=== PATIENT | female | born 2000 | race Two or more races ===

== ENCOUNTER 2025-03-11 09:12 | Outpatient (AMB) | payer BC, MEDICAID, SELFPAY ==
--- NOTE | 2025-03-11 09:20 | OBCLNT_ITS ---
Vital Signs 03/11/25 09:27 Height 1.68 m Height Method Stated Weight 57.833 kg Weight Measurement Method Standing Scale BMI 20.5 BP 106/69 Blood Pressure Source Automatic Cuff Blood Pressure Location Left Upper Arm Position Sitting Respiration 18 Pulse 76 Pulse Source Monitor Temp 97.2 F Temp Source Oral Pulse Oximetry (%) 98 Oxygen Delivery Method Room Air Allergies/Home Meds Allergies & Medications Allergies avocado Allergy (Severe, Verified 03/11/25 09:29) Swelling of Lip/Tongue/Throat banana Allergy (Severe, Verified 03/11/25 09:29) Swelling of Lip/Tongue/Throat pineapple Allergy (Severe, Verified 03/11/25 09:29) Swelling of Lip/Tongue/Throat shellfish derived Allergy (Severe, Verified 03/11/25 09:29) Swelling of Lip/Tongue/Throat Medication Reconciliation prenat.vits,donna,[id number] 1 tab PO QDAY 09/27/21 [History Confirmed 03/11/25] ondansetron HCl 4 mg tablet 4 mg PO Q8H PRN nausea and vomiting #30 tabs 03/11/25 [Rx] Intake Visit Data Collection New Patient or Established: Established Patient (seen at [facility] within 3 years) Reason for Visit:: OBI Seen by Clinical Staff ONLY (RN/MA): No Table Tender Required: No Do You Feel Safe at Home: Yes Authorities Contacted: N/A PCP or OBGYN visit in last 3 months: Yes Date of Last PCP or OBGYN visit: 02/26/25 Hx Now: Yes Are you currently on any form of Control: No Last menstrual period: 01/27/25 Pain Present Currently: No Pain Scale Used: Mendoza-Vasquez/Numerical Pain scale:: 0 Smoking Status Smoking Status: Never smoker Questionnaires Covid-19 Vaccine Questionnaire Has patient been vacinated for Covid-19 Have you been vacinated for Covid-19: Yes PHQ-9 PHQ-2 Over the last 2 weeks, how often have you been bothered by any of the following problems? 1. Little interest or pleasure in doing things: not at all 2. Feeling down, depressed, or hopeless: not at all Total score: 0 PHQ-9 3. Trouble falling or staying asleep, or sleeping too much: Not at all 4. Feeling tired or having little energy: Not at all 5. Poor appetite or overeating: Not at all 6. Feeling bad about yourself - or that you are a failure or have let yourself or your family down: Not at all 7. Trouble concentrating on things, such as reading the newspaper or watching television: Not at all 8. Moving or speaking so slowly that other people could have noticed? - Or the opposite - being so fidgety or restless that you have been moving around a lot more than usual: not at all 9. Thoughts that you would be better off or of hurting yourself in some way: Not at all Total score: 0 If you checked off any problems, how difficult have these problems made it for you to do your work, take care of things at home, or get along with other people?: not difficult at all Source: Developed by Drs. Zia Brooks, Kathy Renteria, Brandon Osorio and colleagues, with an educational christa from [employer]. Depression screen completed yes Social History Living Situation History Marital Status: Single Lives With: Significant Other Housing: House Tobacco History Smoking Status: Never smoker Second Hand Smoke Exposure: No Alcohol History Alcohol Intake: Never Domestic Abuse History Do You Feel Safe at Home: Yes History of Present Illness HPI Narrative 24-year-old 3 para 2 for OBI. Patient's last. January 27, 2025. Estimated due date November 04, 2025. Patient reports sure dates. Menses are monthly and the last about 5 days. Denies any bleeding or SAB complaints. She does feel tired and have waves of nausea. Patient denies any existing past medical history. Denies any surgeries. Denies any social habits. The last 2 pregnancies were both boys. And pregnancies were uncomplicated and no problems. 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 sure dates, c/o waves of nausea and tiredness. no sab complaints, fob involved, happy OB panel today, schedule sono for viability and dates. OB pane with GC/CT and UA, A!c, HCG x1, sched sono for viability, discuss diet and weight, fluid, sab precaution reviewed. comfort measure for nausea, zofran 4 mg prn q 8hr Menstrual History Menstrual reliability: definite Flow: normal Menstrual regularity: regular Monthly: No Age at menarche: 17 On control pills at conception: No Date of positive home test: 02/26/25 OB History : 3 Para: 2 Hx # Pregnancies: 0 Hx Total # of Abortions (Spontaneous & Elective): 0 # of Living Children: 2 Delivery History 1st : date: 07/23/19 sex: male Delivery type: vaginal weight (lbs): 3175.147 g weight (oz): 340.194 g History of depression before or after : No 2nd : date: 09/28/21 sex: male Delivery type: vaginal weight (lbs): 3628.739 g weight (oz): 170.097 g History of depression before or after : No Infection History & Risk Evaluation History of STDs: none HIV risk evaluation: low risk Hepatitis B risk evaluation: low risk Patient or partner has history of Genital Herpes: No Varicella/chicken pox status: immunized Genetic Screening & History Genetic Screening/Teratology Counseling - Includes patient, baby's father, or anyone in either family with: 1. Patient's age 35 years or older as of estimated date of delivery: No 2. Thalassemia (Monegasque, English, Mediterranean, or Background); MCV less than 80: No 3. Neural Tube Defect (Meningomyelocele, Spina Bifida, or Anencephaly): No 4. Congenital Heart Defect: No 5. Down Syndrome: No 6. Son-Sachs (Ashkenazi Nondenominational, Cajun, Mongolian Mcmullen): No 7. Stevan Disease (Ashkenazi Nondenominational): No 8. Familial Dysautonomia (Ashkenazi Nondenominational): No 9. Sickle Cell Disease or Trait (): No 10. Hemophilia or other blood disorders: No 11. Muscular Dystrophy: No 12. Cystic Fibrosis: No 13. [place]'s Chorea: No 14. Mental Retardation/Autism: No 15. Other inherited genetic or chromosomal disorder: No 16. Maternal Metabolic Disorder (EG,TYPE 1 Diabetes, PKU): No 17. Patient or baby's father had a child with defects not listed above: No 18. Recurrent loss or a stillbirth: No 19. Medications (including supplements, vitamins, herbs or otc drugs)/illici t/recreational drugs/alcohol since last menstrual period: No 20. Any other: No Infection History 1. Live with someone with TB or exposed to TB: No 2. Rash or viral illness since last menstrual period: No 3. Hepatitis B,C: No Other (see comments) Source: [employer] Review of Systems Review of Systems Systems Reviewed: All systems reviewed, normal except as documented Exam General Limitations: no limitations General Appearance: alert, in no apparent distress, comfortable, cooperative, healthy appearing, well developed and well groomed Head Head exam: atraumatic, normocephalic and normal inspection Chest Chest inspection: Present normal inspection and symmetric chest wall rise Resp Respiratory exam: Present normal lung sounds bilaterally Card Cardiovascular exam: Present regular rate, normal rhythm and normal heart sounds Abdominal Abdominal exam: Present soft and normal bowel sounds Psych Psychiatric exam: Present normal affect and normal mood Office Procedures OB Clinic LOC & Office Proc's Nursing/Assessment Patient Status: Established Patient OB Clinic Nursing Assessment: Medication Reconciliation, Update PMH in EMR and Vital Signs OB Clinic Coordination of Care: Education Complex Pt/Fam, Consent,records obtained, informed consent, Lab and Imaging orders and Staff clarify orders Established Patient Charge Established Patient Point Assignment: 80 Established Patient Point Charge: EP Level 3 (80-115) Assessment & Plan Diagnosis / Problem List (1) Encounter for supervision of high risk in first trimester, antepartum: Status: Acute Plan OB panel today with hCG x 1 and hemoglobin A1c. Prescription for Zofran 4 mg as needed every 8 hours I gave 30. Discussed comfort measures for nausea and vomiting. Schedule OB sono for dating and viability. Return in 4 weeks Additional Plan Follow Up: 4 Weeks (obc)
[2025-03-11 09:27] VITALS: BP 106/69; PULSE 76; RESP 18; TEMP 36.2; O2SAT 98; BMI 20.5
== END 2025-03-11 09:37 | disposition home or self-care (01) ==
LOC: HODSOBC 09:12
PROVIDERS: PCP Family Medicine; Referring Provider Family Medicine; Supervising Provider Advanced Practice Midwife; Visit Provider Advanced Practice Midwife
DX: O09.91 Supervision of high risk pregnancy, unspecified, first trimester (principal); Z3A.01 Less than 8 weeks gestation of pregnancy; Z91.013 Allergy to seafood; Z91.018 Allergy to other foods
CPT/HCPCS: 99213; G0463

== ENCOUNTER → 2025-03-11 | Outpatient (CLI) | payer BC, MEDICAID, SELFPAY ==
[2025-03-11 10:46] LABS: Misc Send Out* See Sep Rpt
[2025-03-11 11:00] LABS: Collection Type, Urine Clean Catch
[2025-03-11 11:16] LABS: Basophils # (Auto) 0.1 Thou/mm3 (0.0-0.2); Basophils % (Auto) 1 % (0-2.5); Eosinophils # (Auto) 0.1 Thou/mm3 (0.0-0.5); Eosinophils % (Auto) 2 % (0-10); Hematocrit 33.6 % (36.0-46.0); Hemoglobin 11.8 g/dL (12.0-16.0); Immature Granulocytes % (Auto) 0 % (0-0); Immature Granulocytes Auto 0.02 Thou/mm3 (0.00-0.00); Lymphocytes # (Auto) 1.6 Thou/mm3 (1.0-4.8); Lymphocytes % (Auto) 26 % (10-50); Mean Corpuscular HGB Conc 35.1 g/dl (31.0-37.0); Mean Corpuscular Hemoglobin 28.8 pg (25.0-35.0); Mean Corpuscular Volume 82 fL (80-100); Monocytes # (Auto) 0.4 Thou/mm3 (0.0-0.8); Monocytes % (Auto) 7 % (0-12); Neutrophils # (Auto) 3.9 Thou/mm3 (1.8-7.7); Neutrophils % (Auto) 65 % (37-80); Nucleated Red Blood Cell % 0 /100 WBC (0); Platelet Count 228 Thou/mm3 (140-440); RDW Standard Deviation 37.5 fL (36.4-46.3)
[2025-03-11 11:51] LABS: Syphilis Nonreactive (Nonreactive)
[2025-03-11 11:52] LABS: Glucose Estimated Average 100 mg/dL (80-131); Hemoglobin A1C 5.1 % Hgb (4.8-6.0)
[2025-03-11 12:07] LABS: Beta HCG,Quantitative 20675 mIU/mL (<5.0)
[2025-03-11 12:17] LABS: Hepatitis B Surface Antigen Non Reactive (Non React); Hepatitis C Antibody Non Reactive (Non React); Rubella, IgG Antibody Reactive (Immune)
[2025-03-11 12:50] LABS: Bacteria,Urine Rare; Bilirubin,Urine Negative (Negative); Blood,Urine Negative (Negative); Clarity,Urine Clear (Clear/Hazy); Color,Urine Yellow (Lt Yel-Yel); Culture Indicated,Urine Not Indicated; Glucose, Urine Negative (Negative); Ketones,Urine Negative (Negative); Leukocyte Esterase,Urine Negative (Negative); Nitrite,Urine Negative (Negative); PH,Urine 6.5 (5.0-7.0); Protein,Urine Negative (Neg - Trace); RBC,Urine 3 /hpf (0-3); Specific Gravity,Urine 1.026 (1.001-1.035); Squamous Epithelial Cell,Urine 2 /hpf (0-5); Urobilinogen,Urine Negative mg/dL (0.0-1.0); WBC,Urine 2 /hpf (0-5)
[2025-03-12 11:31] LABS: Chlamydia trachomatis PCR Negative (Not Detect); Neisseria Gonorrhoeae DNA PCR Negative (Not Detect); Trichomonas Negative (Negative)
[2025-03-14 06:35] LABS: Sm Antibody* <1.0 NEG AI (<1.0 NEGATIVE)
== END | disposition home or self-care (01) ==
PROVIDERS: PCP Family Medicine; Referring Provider Advanced Practice Midwife; Visit Provider Advanced Practice Midwife
DX: O09.91 Supervision of high risk pregnancy, unspecified, first trimester (principal); Z3A.00 Weeks of gestation of pregnancy not specified
CPT/HCPCS: 36415; 81001; 81220; 83036; 84702; 85025; 86235; 86762; 86780; 86803; 86850; 86900; 86901; 87340; 87491; 87591; 87661

== ENCOUNTER 2025-09-12 07:09 | Emergency (ER) | payer BC, MEDICAID, SELFPAY ==
[2025-09-12 07:11] VITALS: BMI 20.9
[2025-09-12 07:21] VITALS: BP 110/76; PULSE 97; RESP 19; TEMP 36.6; O2SAT 98
--- NOTE | 2025-09-12 07:39 | XR_ITS ---
Examination: Abdomen sonogram, Limited Date and time of exam: September 12, 2025, 0811 hours INDICATIONS: Epigastric pain today Technique: Real-time sloan scale transabdominal sonographic images of the upper abdomen obtained. Findings: Normal gallbladder Normal common bile duct 0.3 cm Pancreatic head 2.1 cm Liver 14.0 cm no focal liver lesions Normal hepatopetal portal venous flow Patent IVC IMPRESSION: Negative study
--- NOTE | 2025-09-12 07:39 | EKG_ITS ---
[facility] Test Date: 2025-09-12 Pat Name: LORA SPRING Department: Room: - Gender: Female Safety Assistant: : 2000 Requested By: Oscar Agustin Order Number: [id number] Reading MD: Oscar Agustin Measurements Intervals [place] Rate: 99 P: 77 MI: 132 QRS: 81 QRSD: 84 T: -4 QT: 326 QTc: 420 Interpretive Statements SINUS RHYTHM NONSPECIFIC ST & T-WAVE ABNORMALITY Compared to ECG 12/03/2021 16:06:42 Sinus arrhythmia no longer present Short MI interval no longer present Possible ischemia no longer present T-wave abnormality still present /store/S0/[id number].pdf
[2025-09-12] MEDS: ONDANSETRON ODT 4 MG TABRAP PO (07:52)
[2025-09-12] MEDS: MG HYD/AL HYD/SIME (Maalox Reg) SUSP 30 ML UDC PO (07:58)
[2025-09-12] MEDS: LIDOCAINE VISCOUS 2% 15 ML UDC PO (07:58)
--- NOTE | 2025-09-12 08:30 | EDNOTE_ITS ---
ED Abdominal Pain RME/HPI General Chief Complaint: Abdominal Pain Stated complaint: ABD PAIN AND CRAMPING Time seen by provider: 09/12/25 07:13 Arrival date/time: 09/12/25 07:09 RME / HPI RME / HPI narrative: 25-year-old female presents to the ER complaining of epigastric abdominal pain along with nausea vomiting diarrhea which started at 3 AM this morning which is sharp and crampy in nature. Denies any dysuria, fever, chest pain, shortness of breath. Denies any recent antibiotic use. Related Data Home Medications ?Medication ?Instructions ?Recorded ?Confirmed prenat.vits,donna,[id number] 1 tab PO QDAY 09/27/21 03/11/25 Previous Rx's ?Medication ?Instructions ?Recorded ondansetron HCl 4 mg tablet 4 mg PO Q8H PRN nausea and 03/11/25 vomiting #30 tabs promethazine 25 mg tablet 25 mg PO TID #60 tabs ondansetron 4 mg disintegrating 4 mg PO Q8H PRN nausea and 09/12/25 tablet vomiting #12 tabs pantoprazole 40 mg granules 40 mg PO QDAY #30 ea 09/12 delayed-release for susp in packet (Protonix) Allergies Allergy/AdvReac Type Severity Reaction Status Date / Time avocado Allergy Severe Swelling Verified 09/12/25 07:11 of Lip/Tongue/Throat banana Allergy Severe Swelling Verified 09/12/25 07:11 of Lip/Tongue/Throat pineapple Allergy Severe Swelling Verified 09/12/25 07:11 of Lip/Tongue/Throat shellfish derived Allergy Severe Swelling Verified 09/12/25 07:11 of Lip/Tongue/Throat ED Exam Narrative Physical exam: Constitutional: Patient alert and oriented. Well appearing. No acute distress. Not toxic appearing. Head: Normocephalic, atraumatic. Eyes: Periorbital regions bilaterally normal to inspection. Conjunctiva clear bilaterally. Sclera anicteric bilaterally. Pupils equal, round, reactive to light bilaterally. Extraocular movements intact bilaterally. Mouth/Throat: Mucous membranes moist. No stridor or muffled voice. No trismus. Handling secretions without difficulty. Airway widely patent. Neck: Supple. Trachea midline. No JVD. No nuchal rigidity. Normal range of motion. Respiratory: Normal effort. No accessory muscle use or respiratory distress. Lungs clear to auscultation bilaterally without rhonchi, wheezes, or crackles. Cardiovascular: RRR. Normal S1/S2. No murmurs or rubs. Radial pulses intact bilaterally. Abdomen: Soft. Non-distended. Positive mild epigastric tenderness. No pulsatile mass. No guarding or rebound. Negative Fuentes?s sign. Negative McBurney?s point tenderness. Negative Rovsing?s. Back: No midline tenderness or step-offs. No CVA tenderness to palpation bilaterally. Upper Extremities: No gross deformities. Lower Extremities: No gross deformities. No edema or calf tenderness. Neuro: Speech normal. No gross motor or sensory deficits to upper or lower extremities bilaterally. GCS 15. CN II?XII grossly intact. Skin: Warm, dry, normal color. Psych: Normal affect. Cooperative. Normal insight. Course Quality Measures none Orders Category Date Time Status EKG (ED ONLY) *Do not use* NOW Care 09/12/25 07:39 Completed EKG (ED Only) Stat Exams 09/12/25 07:39 Draft US gall bladder Stat Exams 09/12/25 07:39 Completed CBC Stat Lab 09/12/25 08:35 Completed CMP [Comprehensive Metabolic Panel] Stat Lab 09/12/25 08:35 Completed HCG Qualitative,Urine Stat Lab 09/12/25 08:26 Completed INR [Prothrombin Time with INR] Stat Lab 09/12/25 08:35 Completed Lipase Stat Lab 09/12/25 08:35 Completed Troponin I Stat Lab 09/12/25 08:35 Completed UA, C/S IF [Urinalysis, C/S if Indicated] Stat Lab 09/12/25 08:26 Completed Lidocaine 2% Viscous [Xylocaine 2% Viscous] Med 09/12/25 07:39 Discontinued 15 ml PO X1 ONE Ondansetron Odt [Zofran Odt] Med 09/12/25 07:39 Discontinued 4 mg PO X1 ONE mg Hyd/Al Hyd/Jorge Susp [Maalox Susp] Med 09/12/25 07:39 Discontinued 30 ml PO X1 ONE Vital Signs Vital signs: Vital Signs Temperature 97.8 F 09/12/25 07:21 Pulse Rate 97 09/12/25 07:21 Respiratory Rate 19 09/12/25 07:21 Blood Pressure 110/76 09/12/25 07:21 Pulse Oximetry (%) 98 09/12/25 07:21 PROCEDURES: EKG Interpretation #1: Date of EK09/12/25 Time of EK:43 Additional EKG comment: 99 normal sinus rhythm with nonspecific ST abnormalities without ST elevation, normal axis, good R wave progression Abdominal Pain [facility] Narrative MDM Narrative:: MDM The patient presents with abdominal pain of unclear etiology. Patient's pain may be related to gastritis. Evaluation today has not identified an emergent cause. Given the benign abdominal exam and lack of significant risk factors, I have very low suspicion for strangulated or incarcerated hernia (no skin changes or irreducible mass), perforation (no abrupt pain or peritonitis), small bowel obstruction/volvulus (no peritoneal signs), AAA/dissection (no pulsatile mass, extremities warm bilaterally), mesenteric ischemia (no history of vascular disease, atrial fibrillation, postprandial pain, or blood in stool), acute infectious processes such as appendicitis or abscess (no peritonitis), or any other life-threatening disease. Serial abdominal exams were benign throughout the ED stay, and the patient tolerated oral intake without difficulty. I considered CT imaging and admission; however, given the negative workup as indicated today, stable appearance, and absence of peritoneal signs, the risks outweigh the benefits at this time. The option of CT scan now versus home observation with close follow-up was discussed extensively with the patient. After reviewing risks?including missed diagnosis, inadequate treatment, worsening illness, disability, or potentially life-threatening consequences?the patient declined CT at this time. This decision is reasonable given the current presentation. The inherent uncertainty with undifferentiated abdominal pain was emphasized, and strict return precautions were provided. The patient has been instructed that this presentation could represent an early acute abdominal process. The plan is for mandatory re-evaluation within 24 hours and immediate return for worsening, persistence, or change in symptoms. The patient may follow up with their primary care provider or return to the ED as appropriate. The patient appears stable for discharge at this time. At the time of reassessment prior to discharge, the patient remains alert and oriented ?3 with GCS 15. Vitals are normal, pain is controlled, and the patient is tolerating oral intake without nausea or vomiting. The patient is agreeable to discharge and verbalizes understanding of the diagnosis, studies, treatment plan, medications (including side effects/precautions), and strict ER return precautions as discussed in the ED. All concerns were addressed, and the patient is comfortable with the plan. Patient data External records reviewed:: [facility] previous records Clinical information provided by:: patient Social determinants that could affect healthcare access:: none Patient has the following chronic illnesses:: None How is presenting disease/condition affected by chronic disease/condition?: uneffected by Evaluation data The following diagnostics were reviewed and interpreted by me:: lab results, radiology exam(s) and EKG tracing(s) Lab and/or radiology exams considered but not ordered:: Additional Labs and radiology considered, but not ordered as they were not clinically indicated at this time. Interpretation Summary: Lab work notable for neutrophil percentage being minimally elevated at 93% however normal WBC count of 10.1 and neutrophil number being minimally elevated at 9.3 thousand along with immature granulocyte number being elevated 0.03 thousand however otherwise CBC unremarkable CMP with a minimally elevated glucose of 114, total bilirubin minimally elevated 1.4 however AST is within normal limits at 14, ALT within normal notes at 10, alk phos is low at 29 otherwise no severe metabolic or electrolyte abnormality and lipase negative Troponin undetectable Doubt acute hepatobiliary obstruction as ultrasound is negative for this and there is no acute intra-abdominal pathology per ultrasound Urine with ketones and 6 RBCs however no signs of infection EKG without acute ischemia or arrhythmia Medications / Prescriptions Medications or Prescriptions considered but not ordered:: I ordered medications based on the patient?s clinical needs and assessment, as documented in the chart. For medications not prescribed, they were not indicated for the patient's current condition, and I determined they were unnecessary at this time to avoid potential risks or complications. Medication administrations:: Medication Administration History Discontinued Medications Al Hydrox/Mg Hydrox/Simethicone (Mg Hyd/Al Hyd/Jorge (Maalox Reg) Susp 30 Ml Udc) 30 ml PO X1 ONE Stop: 09/12/25 07:40 Last Admin: 09/12/25 07:58 Dose: 30 ml Documented By: ED Lidocaine HCl (Lidocaine Viscous 2% 15 Ml Udc) 15 ml PO X1 ONE Stop: 09/12/25 07:40 Last Admin: 09/12/25 07:58 Dose: 15 ml Documented By: ED Ondansetron HCl (Ondansetron Odt 4 Mg Tabrap) 4 mg PO X1 ONE; Protocol Stop: 09/12/25 07:40 Last Admin: 09/12/25 07:52 Dose: 4 mg Documented By: ED As noted Consultations Consultation(s) initiated? (list below): No Diagnosis Differential diagnosis abdominal pain: abdominal pain, constipation and gastroenteritis Most likely diagnosis given after review of the tests above:: Gastritis Admission Indicated Admission indicated?: not indicated Admission Request Was there a request for admission?: No Disposition Plan Disposition Plan: Discharge Discharge Attestation Discharge Attestation: The patient and all family members were given an opportunity to ask questions and understood the discharge instructions. Discharge instructions specifically effects, indications for sooner follow up or return to the emergency department, and the expected course of current diagnosis. Patient condition: Stable Discharge Plan Plan Patient Disposition: HOME (Self Care) Patient condition on transfer: Stable Prescriptions/Referrals Prescriptions/Med Rec: New pantoprazole [Protonix] [address] for susp in packet 40 mg PO QDAY Qty: 30 0RF ondansetron 4 mg tablet,disintegrating 4 mg PO Q8H PRN (Reason: nausea and vomiting) Qty: 12 0RF Rx Instructions: 1-2 tabs PO Q8Hr prn nausea or vomit No Action ondansetron HCl 4 mg tablet 4 mg PO Q8H PRN (Reason: nausea and vomiting) Qty: 30 4RF promethazine 25 mg tablet 25 mg PO TID Qty: 60 2RF Vitamin Tablet 1 tab PO QDAY Referrals: Eliana Beltran MD [Primary Care Provider, Family Practice] - In 1 week Problem List Clinical Impression: Abdominal pain Patient/Caregiver Discharge Instructions Education Materials: Abdominal Pain Additional Instructions: Follow up with your primary medical doctor within 24 hours. Return to the Emergency Room immediately for any new, worsening, continuing symptoms or any concerns at all. Return to the Emergency Room within 24 hours if you are unable to follow up with your primary medical doctor within 24 hours. Print Language: Armenian Stand Alone Forms: [employer] Info., Patient Portal Info Letter HIMANSHU/LETICIA Supervising Physician HIMANSHU/LETICIA Supervising Physician: Dr. Garcia
[2025-09-12 08:37] LABS: Collection Type, Urine Voided
[2025-09-12 08:41] LABS: HCG Qualitative,Urine Negative
[2025-09-12 08:43] LABS: Bilirubin,Urine Negative (Negative); Blood,Urine Negative (Negative); Clarity,Urine Clear (Clear/Hazy); Color,Urine Yellow (Lt Yel-Yel); Culture Indicated,Urine Not Indicated; Glucose, Urine Negative (Negative); Ketones,Urine 2+ (Negative); Leukocyte Esterase,Urine Negative (Negative); Nitrite,Urine Negative (Negative); PH,Urine 6.0 (5.0-7.0); Protein,Urine Negative (Neg - Trace); RBC,Urine 6 /hpf (0-3); Specific Gravity,Urine 1.027 (1.001-1.035); Squamous Epithelial Cell,Urine 1 /hpf (0-5); Urobilinogen,Urine Negative mg/dL (0.0-1.0); WBC,Urine 1 /hpf (0-5)
[2025-09-12 08:49] LABS: Basophils # (Auto) 0.0 Thou/mm3 (0.0-0.2); Basophils % (Auto) 0 % (0-2.5); Eosinophils # (Auto) 0.0 Thou/mm3 (0.0-0.5); Eosinophils % (Auto) 0 % (0-10); Hematocrit 37.7 % (36.0-46.0); Hemoglobin 13.0 g/dL (12.0-16.0); Immature Granulocytes Auto 0.03 Thou/mm3 (0.00-0.00); Lymphocytes # (Auto) 0.5 Thou/mm3 (1.0-4.8); Lymphocytes % (Auto) 5 % (10-50); Mean Corpuscular HGB Conc 34.5 g/dl (31.0-37.0); Mean Corpuscular Hemoglobin 29.1 pg (25.0-35.0); Mean Corpuscular Volume 85 fL (80-100); Monocytes # (Auto) 0.2 Thou/mm3 (0.0-0.8); Monocytes % (Auto) 2 % (0-12); Neutrophils # (Auto) 9.3 Thou/mm3 (1.8-7.7); Neutrophils % (Auto) 93 % (37-80); Nucleated Red Blood Cell # 0.00 Thou/mm3 (0.00-0.00); Nucleated Red Blood Cell % 0 /100 WBC (0); Platelet Count 238 Thou/mm3 (140-440); RDW Standard Deviation 37.2 fL (36.4-46.3); Red Blood Count 4.46 Miln/mm3 (4.00-5.20); White Blood Count 10.1 Thou/mm3 (3.6-11.0)
[2025-09-12 09:17] LABS: Alanine Aminotransferase 10 U/L (10-49); Albumin, Serum 4.6 gm/dL (3.5-5.0); Albumin/Globulin Ratio 1.8 (1.2-2.2); Alkaline Phosphatase 29 U/L (46-116); Anion Gap 10 (7-16); Aspartate Amino Transferase 14 U/L (0-34); BUN/Creatinine Ratio 14 Ratio (12-20); Bilirubin,Total 1.4 mg/dL (0.3-1.2); Blood Urea Nitrogen 10 mg/dL (9-23); Calcium 9.0 mg/dL (8.3-10.6); Calcium (Corrected) 9.0 mg/dL (8.5-10.1); Carbon Dioxide 23.6 mMol/L (20.0-31.0); Chloride 107 mMol/L (98-107); Creatinine (Component) 0.7 mg/dL (0.6-1.3); Estimated Creatinine Clearance 116.4 mL/min (>60); Globulin 2.5 gm/dL (2.3-3.5); Glucose 114 mg/dL (74-106); Lipase 27 U/L (12-53); Osmolality,Calculated 281 (275-295); Potassium 3.9 mMol/L (3.4-5.1); Sodium 141 mMol/L (136-145); Total Protein 7.1 gm/dL (5.7-8.2); Troponin I < 0.002 ng/mL (0.0-0.045); eGFR > 60 See Note
[2025-09-12 09:24] LABS: INR 1.0 (0.9-1.3); Prothrombin Time 10.3 Seconds (9.0-12.2)
== END 2025-09-12 11:58 | disposition home or self-care (01) ==
PROVIDERS: Emergency Provider Physician Assistant; PCP Family Medicine
DX: R10.13 Epigastric pain (principal); R94.31 Abnormal electrocardiogram [ECG] [EKG]
CPT/HCPCS: 36415; 76705; 80053; 81001; 81025; 83690; 84484; 85025; 85610; 93005; 99283; J3490; Q0162; A9270